=== PATIENT | male | born 1970 | race African-American/Black ===

== ENCOUNTER 2017-10-22 09:55 | Outpatient (CLI) | payer BC ==
[2017-10-22] MEDS ORDERED: Iopamidol 370 76% 100 ML VIAL ONE (14:49)
== END 2017-10-22 09:56 | disposition home or self-care (01) ==
LOC: BICCT 09:55
PROVIDERS: ATTEND Internal Medicine Hematology & Oncology
DX: C83.89 Other non-follicular lymphoma, extranodal and solid organ sites (principal)
CPT/HCPCS: 71260; 74177

== ENCOUNTER 2025-03-19 14:03 | Outpatient (CLI) | payer BC ==
[2025-03-19] MEDS ORDERED: Iopamidol 370 76% 100 ML VIAL ONE (15:38)
== END 2025-03-19 14:04 | disposition home or self-care (01) ==
LOC: CT 14:03
PROVIDERS: ATTEND Family Medicine
DX: R63.4 Abnormal weight loss (principal); Z85.72 Personal history of non-Hodgkin lymphomas; M79.89 Other specified soft tissue disorders; R59.0 Localized enlarged lymph nodes
CPT/HCPCS: 71270; 74178